=== PATIENT | female | born 1995 | race Asian ===

== ENCOUNTER 2020-03-21 17:06 | Emergency (ER) | payer BC ==
[~2020-03-21] VITALS: Ht 157.5 cm; Wt 42.2 kg
[2020-03-21 17:30] VITALS: BP_SYST 106
[2020-03-21] MEDS ORDERED: IBUPROFEN 600 MG TABLET PO ONE (18:00)
[2020-03-21 18:30] VITALS: BP_SYST 106
== END 2020-03-21 18:30 | disposition home or self-care (01) ==
LOC: SED 17:06
DX: R07.81 Pleurodynia (principal)
CPT/HCPCS: 71046-TC; 99283